=== PATIENT | male | born 1990 | race Caucasian/White ===

== ENCOUNTER → 2025-02-12 08:54 | Outpatient (REF) | payer BC, SELFPAY | LOC: HWRAD 08:54 | PROVIDERS: ATTENDING PHYSICIAN Otolaryngology; FAMILY PHYSICIAN Family Medicine Addiction Medicine | DX: J32.9 Chronic sinusitis, unspecified (principal) | CPT/HCPCS: 70486 ==

== ENCOUNTER → 2025-07-05 13:58 | Outpatient (REF) | payer BC, SELFPAY | LOC: RAD 13:58 | PROVIDERS: ATTENDING PHYSICIAN Psychiatry & Neurology Neurology; FAMILY PHYSICIAN Family Medicine Addiction Medicine | DX: Z13.5 Encounter for screening for eye and ear disorders (principal); H05.50 Retained (old) foreign body following penetrating wound of unspecified orbit | CPT/HCPCS: 70030 ==